=== PATIENT | female | born 1980 | race Caucasian/White ===

== ENCOUNTER → 2024-09-24 | Outpatient (CLI) | payer MEDICAID, SELFPAY ==
--- NOTE | 2024-09-24 12:25 | ETH_PTH ---
PATIENT: INDIRA WEINER LOC: [facility] U#:[id number] AGE/SX: 43/F ROOM: RE09/24/[address]: Dr. Xander Rosenbaum MD : 1980 BED: DIS: 09/24/2024 SPEC #: [id number] RECD: 09/24/24 15:48 STATUS: GILLES REAreli #: [id number] YARI: 09/24/24 12:[address]: Xander Rosenbaum DEPT: SURGICAL PATHOLOGY RECD BY: Micheal Velasquez ENTERED: 09/25/24 09:31 SP TYPE: ETH TISS OTHR DR: No Primary Care Phys Tissues: A - Ethmoid sinus, NOS B - Ethmoid sinus, NOS C - Ethmoid sinus, NOS Procedures: Decalcification bone/plaque Surgery Specimen Level IV HEADER OPERATION: Septoplasty, functional endoscopic sinus surgery PRE-OP DIAGNOSIS: Nasal congestion, other chronic sinusitis TISSUE SUBMITTED: A- Nasal septum, B- Left sinus, C- Right sinus MICROSCOPIC DIAGNOSIS A. Nose, septum, septoplasty: - Sinonasal mucosa, hyaline cartilage and trabecular bone with no specific pathologic change. B. Sinus, left, functional endoscopic sinus surgery: - Sinonasal mucosa with active chronic inflammation consistent with chronic sinusitis. - Unremarkable trabecular bone fragments. C. Sinus, right, functional endoscopic sinus surgery: - Sinonasal mucosa with active chronic inflammation consistent with chronic sinusitis. - Unremarkable trabecular bone fragments. MICROSCOPIC DESCRIPTION Slides are reviewed. GROSS DESCRIPTION Received in 3 formalin containers labeled with the patient's name and date of . Designated as: A. Nasal septum is a 2.5 x 1.3 x 0.2 cm aggregate of nieves-white to red irregular bone and cartilaginous tissue fragments. Entirely submitted in 1 cassette, following decalcification. B. Left sinus content is a 1.8 x 0.9 x 0.1 cm aggregate of nieves tissue and irregular bone fragments. Entirely submitted in 1 cassette, following decalcification. C. Right sinus content is a 1.9 x 0.8 x 0.2 cm aggregate of nieves tissue and irregular bone fragments. Entirely submitted in 1 cassette, following decalcification. DC 09/25/2024 CPT:[id number]
== END | disposition home or self-care (01) ==
LOC: LABSPEC 15:14
PROVIDERS: Referring Provider Otolaryngology; Visit Provider Otolaryngology
DX: J32.8 Other chronic sinusitis (principal); R09.81 Nasal congestion
CPT/HCPCS: 88305; 88311